=== PATIENT | male | born 1970 | race Caucasian/White ===

== ENCOUNTER 2025-04-14 11:20 | Observation (INO) | payer OTHER ==
[~2025-04-14] VITALS: Ht 167.6 cm; Wt 65.8 kg
[2025-04-14] VITALS (9 sets, daily range): BP systolic 165–189; BP diastolic 79–119; PULSE 54–69; RESP 16–18; TEMP 97.1–98.5; O2SAT 96–98
[2025-04-14] MEDS ORDERED: ASPIRIN ONE ×2 (11:36→11:39)
[2025-04-14] MEDS ORDERED: NS 500ML 500 ML IV ONE (11:37)
[2025-04-14] MEDS: NS 500ML 500 ML IV STA (11:41)
[2025-04-14] MEDS: ASPIRIN EC PO STA (11:41)
[2025-04-14 11:48] LABS: BASOPHIL # 0.0 10^3/uL (0.0-0.1); BASOPHIL % 0.4 % (0.2-1.2); EOSINOPHIL # 0.2 10^3/uL (0.0-0.2); EOSINOPHIL % 3.8 % (0.0-5.0); HEMATOCRIT(ML) 41.3 % (37.0-53.0); IG % 0.70 % (0.00-0.50); LYMPHOCYTES # 1.66 10^3/uL1 (1.0-4.8); LYMPHOCYTES % 29.7 % (24.0-44.0); MEAN CORP HGB 25.0 pg (26-34); MEAN CORP HGB CONCENTRATION 32.2 g/dL (33-36.5); MEAN CORP VOLUME 77.6 fL (78-100); MONOCYTES # 0.4 10^3/uL (0.3-0.8); MONOCYTES % 7.3 % (5.0-12.0); NEUTROPHIL # 3.2 10^3/uL (1.8-7.7); NEUTROPHILS % 58.1 % (41.0-85.0); RED BLOOD CELL 5.32 10^6/uL (4.50-5.90); RED CELL DISTRIBUTION WIDTH 18.1 % (11.5-14.5); WHITE BLOOD CELL 5.6 10^3/uL (4.5-11.0)
[2025-04-14 12:03] LABS: ALANINE AMINOTRANSFERASE(ML) 45.0 U/L (12-78); ALBUMIN(ML) 4.1 g/dL (3.4-5.0); CREATININE SERUM 1.09 mg/dL (0.59-1.40); EST GFR, NON-AA 70.5 (>/=60); TROPONIN I HIGH SENSITIVITY 9.0 ng/L (0-75)
[2025-04-14 12:11] LABS: INR 1.0; PROTHROMBIN PROTIME 10.8 SEC (9.3-11.6)
[2025-04-14 12:22] LABS: LEUKOCYTE ESTERASE ,URINE NEGATIVE (NEGATIVE); NITRATE,URINE NEGATIVE (NEGATIVE)
[2025-04-14 12:24] LABS: APPEARANCE,URINE CLEAR; UA COLOR YELLOW
[2025-04-14] MEDS ORDERED: MILK OF MAGNESIA PO PRN (15:00)
[2025-04-14] MEDS ORDERED: TYLENOL PO PRN (15:00)
[2025-04-14] MEDS ORDERED: MELATONIN PO PRN (15:00)
[2025-04-14] MEDS ORDERED: SIMETHICONE PO PRN (15:00)
[2025-04-14] MEDS ORDERED: ZOFRAN IV PRN (15:00)
[2025-04-14] MEDS ORDERED: MYLANTA PO PRN (15:00)
[2025-04-14] MEDS: COZAAR PO STA (15:06)
[2025-04-14] MEDS: LOVENOX SQ SCH (15:20)
[2025-04-14] MEDS: LIPITOR PO SCH (21:02)
[2025-04-15] VITALS (7 sets, daily range): BP systolic 135–167; BP diastolic 85–99; PULSE 62–71; RESP 16–18; TEMP 96.8–97.9; O2SAT 96–100
[2025-04-15 06:14] LABS: ALANINE AMINOTRANSFERASE(ML) 41.0 U/L (12-78); ALBUMIN(ML) 3.7 g/dL (3.4-5.0); CREATININE SERUM 1.09 mg/dL (0.59-1.40); EST GFR, NON-AA 70.5 (>/=60); LDL/HDL RATIO 4.4
[2025-04-15] MEDS: PROTONIX PO SCH (08:48)
[2025-04-15] MEDS: ASPIRIN EC PO SCH (08:48)
[2025-04-15] MEDS: COZAAR PO SCH (08:48)
[2025-04-15] MEDS: NORVASC PO SCH (08:49)
[2025-04-15] MEDS ORDERED: ASPI-1007 PO (13:35)
[2025-04-15] MEDS ORDERED: AMLO2.5T2 PO (13:35)
[2025-04-15] MEDS ORDERED: LOSA-400 PO (13:35)
[2025-04-15] MEDS ORDERED: ATOR20TA PO (13:35)
== END 2025-04-15 15:05 | disposition home or self-care (01) ==
LOC: ER 11:20 → OBS 13:48
PROVIDERS: ADMIT Internal Medicine; ATTEND Internal Medicine
DX: I10 Essential (primary) hypertension (principal); R13.10 Dysphagia, unspecified; Z86.73 Personal history of transient ischemic attack (TIA), and cerebral infarction without residual deficits; Z98.890 Other specified postprocedural states; Z79.899 Other long term (current) drug therapy
CPT/HCPCS: 99291; 96372; 96360; 70551; 71045; 70450; 70498; 70496; 81003; 80053 ×2; 85025; 82948; 36415 ×2; 84484; 82550; 85610; 85730; 93005; 97165; 92610; 80061; 97161; G0378 ×25; J7040; J8499 ×2; J1650; Q9967; A9579; Q9965